=== PATIENT | female | born 1940 | race Caucasian/White ===

== ENCOUNTER 2017-07-08 00:06 | Observation (INO) ==
[2017-07-08] MEDS ORDERED: SALINE FLUSH 10ml SYRINGE IVF PRN (00:32)
[2017-07-08] MEDS ORDERED: ASPIRIN 81 MG CHEWABLE TABLET PO ONE (01:18)
--- NOTE | 2017-07-08 01:18 | Emergency Department Report ---
General Adult HPI - General Chief complaint: Chest Pain Stated complaint: Left side numb/chest feels heavy Time Seen by Provider: 07/08/17 00:19 Source: patient, family Mode of arrival: wheelchair Limitations: no limitations - History of Present Illness HPI narrative: 77-year-old female presents to the emergency department with the chief complaint of chest pressure and tingling in the left upper extremity. Patient states that she noted a tingling in her left upper extremity began at approximately 1700 today while she was at home. Patient also notes pressure in the midsternal region of the chest without radiation. Pressure is moderate. She denies any other complaints or associated symptoms other than some mild nausea. Patient states that her symptoms have been persistent in nature since onset and have been improving without intervention prior to arrival to the emergency department. No other complaints or associated symptoms. - Related Data Home Medications Medication Instructions Recorded Confirmed Ubidecarenone (Coq-10) 1 cap PO TID #0 10/04/15 Calcium Carb,Gluc/Mag Ox,Gluc 1 tab PO DAILY #0 04/05/16 [Calcium Magnesium Caplet] Cholecalciferol (Vitamin D3) 1 tab PO DAILY #0 04/05/16 [Vitamin D3] Lutein 20 mg PO DAILY #0 tab 04/05/16 [place]-3 Fatty Acids/Fish Oil [Fish 1,000 mg PO BID #0 cap 04/05/16 Oil 1,000 mg Capsule] Oregano Oil [Oil of Oregano] 1 tab PO BID #0 04/05/16 Vitamin E Acetate [Vitamin E] 1 cap PO DAILY #0 04/05/16 Vitamins A and D [Vitamin A and D] 1 tab PO DAILY #0 04/05/16 Zinc [Zinc Lozenge] 1 ellyn SL DAILY #0 04/05/16 levOCARNitine [l-Carnitine] 1 tab PO DAILY #0 04/05/16 Previous Rx's Medication Instructions Recorded Lisinopril 1 tab PO DAILY #5 tab 10/04/15 Allergies Allergy/AdvReac Type Severity Reaction Status Date / Time Sulfa (Sulfonamide Allergy Unknown Verified 07/08/17 01:19 Antibiotics) Review of Systems Constitutional: Denies: fever, chills Eyes: Denies: eye pain, vision change ENT: Denies: ear pain, throat pain Cardiovascular: Reports: chest pain. Denies: palpitations Respiratory: Denies: cough, dyspnea Gastrointestinal: Reports: nausea. Denies: abdominal pain, vomiting, diarrhea Genitourinary: Denies: urgency, dysuria Musculoskeletal: Denies: back pain, arthralgia Integumentary: Denies: erythema, rash Neurological: Denies: headache, weakness, numbness Psychiatric: Denies: anxiety, depression Endocrine: Denies: fatigue, heat or cold intolerance Hematological/Lymphatic: Denies: easy bleeding, easy bruising Allergic/Immunologic: Denies: facial swelling, urticaria PFSH Patient Stated Medical History Migraine Yes Hypertension Yes Other Cardiology Yes: KNOWN LEFT BUNDLE BRANCH BLOCK Surgical History: Negative. Family History: Reviewed and Non-contributory. - Social History Smoking status: Never smoker Substance use type: does not use Alcohol intake frequency: does not drink Physical Exam - Limitations Limitations: no limitations - General General appearance: alert, in no apparent distress - Normal Exams: Head:: Normocephalic without trauma Eyes:: Pupils are PERRLA w/ EOMI, No scleral icterus, irritation, or foreign bodies noted ENMT:: No facial trauma, nasal exudates, pharyngeal erythema, or exudates are noted Dental: No fractured, loose, or missing teeth noted Neck:: Full range of motion, without adenopathy, JVD, bruits or thyromegaly Chest/Respirations:: Clear all heath, with good airflow, and symmetry bilaterally Cardiovascular:: Regular rate and rhythm, without murmur or gallop, Pulses 2+ all extremities, capillary refill, <2 seconds all extremities Abdomen:: Bowel sounds positive, soft, non-tender, non-distended, no hepatosplenomegaly, masses or bruits noted Lymphatic:: No lymphadenopathy, or lymphedema noted Musculoskeletal:: No tenderness, or deformity noted, good range of motion, all extremities Integumentary:: No rashes, hives, or bruising noted, hair and nails, without abnormality Neurological:: Patient is alert, and oriented, cranial nerves, motor/sensory/ cerebellar, exams w/o gross deficits, to observation (Alert and oriented x 4. CN 2-12 intact. Normal strength. normal motor. Normal sensation. normal speech. normal coordination. absent babinski bilat. Reflexes 2/4 in all ext. Gait normal. unremarkable neurological exam. No focal neurological deficits.) Psychiatric:: Patient exhibits, appropriate attention, emotion and affect Course Vital Signs Temperature 97.8 F 07/08/17 00:09 Pulse Rate 95 07/08/17 00:09 Respiratory Rate 16 07/08/17 00:09 Blood Pressure 189/86 H 07/08/17 00:09 Pulse Oximetry 98 07/08/17 00:09 Temperature 97.8 F 07/08/17 00:09 Pulse Rate 78 07/08/17 01:42 Respiratory Rate 18 07/08/17 01:42 Blood Pressure 143/66 H 07/08/17 01:42 Pulse Oximetry 98 07/08/17 01:42 Medical Decision Making - MDM Narrative Medical decision making narrative: Labs / imaging were discussed in detail with the patient and questions are answered. Upon arrival to the emergency department the patient's chest pressure and tingling in the left upper extremity have resolved in entirety. Patient is given 243 mg of aspirin to go with the 81 mg of aspirin that she has taken prior to arrival to the emergency department this evening. Patient is discussed with the hospitalist Dr. De Oliveira and will be admitted to the service of Dr. Ferreira in improved condition. Patient remains asymptomatic during her emergency department stay. Patient's blood pressure improved to 129/60. Patient is in agreement with the current plan of management. She is admitted to the hospital in improved condition. Accepting physician is in agreement with the current plan of management. No further orders. Due to the tingling in the left upper extremity stroke workup was initiated but stroke alert was not called. Patient is not a candidate for TPA as there is no clearcut ischemic CVA present. Patient's symptoms began at 1700 and she is outside of the window for TPA. Symptoms have resolved. - Differential Diagnosis VT, Metabolic process, HTN, UTI - Lab Data Result diagrams: 07/08/17 00:32 07/08/17 00:32 Lab Results 07/08/17 07/08/17 07/08/17 Range/Units 00:32 00:32 00:42 WBC 10.6 (4.5-11.0) T/MM3 RBC 5.00 (4.00-5.20) M/MM3 Hgb 14.2 (12-16) GM/DL Hct 42.6 (36-46) % MCV 85.2 (80-100) UM3 MCH 28.4 (26-34) UUG MCHC 33.3 (31-37) GM/DL RDW Std Deviation 40.5 (36.9-50.2) FL Plt Count 281 (130-400) T/MM3 MPV 10.1 (9.4-12.4) UM3 Immature Gran % (Auto) 0.1 (0.0-0.5) % Neut % (Auto) 46.1 (33-66) % Lymph % (Auto) 43.2 (23-45) % Woods % (Auto) 8.4 (0-9.0) % Eos % (Auto) 1.7 (0-4) % Baso % (Auto) 0.5 (0-2) % Neut # (Auto) 4.9 (1.8-7.7) T/MM3 Lymph # (Auto) 4.6 (1-4.8) T/MM3 Woods # (Auto) 0.9 H (0-0.8) T/MM3 Eos # (Auto) 0.2 (0-0.5) T/MM3 Baso # (Auto) 0.1 (0-0.2) T/MM3 Abs Immat Gran (auto) 0.01 (0.00-0.03) T/MM3 INR 0.97 L (0.99-1.21) APTT 28.8 (24-36) SEC Turbidity < 20 (0-20) Sodium 141 (134-144) MEQ/L Potassium 3.9 (3.6-5) MEQ/L Chloride 106 (98-107) MEQ/L Carbon Dioxide 24 (22-30) MEQ/L Anion Gap 11 (5-15) MEQ/L BUN 25.0 H (7-17) MG/DL Creatinine 0.7 (0.7-1.2) MG/DL GFR Calculation 81 BUN/Creatinine Ratio 36 H (6-26) RATIO Glucose 93 (65-110) MG/DL Calculated Osmolality 275 (261-280) MOSM/KG Calcium 9.7 (8.4-10.2) MG/DL Total Bilirubin 0.40 (0.20-1.30) MG/DL Icterus Index < 2 (0-7) AST 29 (14-36) U/L ALT 33 (9-52) U/L Alkaline Phosphatase 123 (38-126) U/L Troponin I < 0.012 (0-0.12) ng/ml Total Protein 7.2 (6.3-8.2) G/DL Albumin 4.0 (3.5-5.0) G/DL Globulin 3.2 (2.4-3.6) G/DL Albumin/Globulin Ratio 1.3 (1.1-2.2) RATIO Specimen Hemolysis < 15 (0-25) - Radiology Data CT Head - No acute processes. CXR - No acute processes. Similar to comparison exam. - EKG Data EKG #1 EKG results narrative: Sinus rhythm. Left axis deviation. Left bundle branch block. 94 bpm. No STEMI. EKG is similar to 10/04/15. Disposition Clinical Impression: Chest pain Qualifiers: Chest pain type: unspecified Qualified Code(s): R07.9 - Chest pain, unspecified Disposition: To [facility] Condition: Improved Prescriptions: No Action Ubidecarenone (Coq-10) 1 cap PO TID #0 Vitamin E Acetate [Vitamin E] 1 cap PO DAILY #0 Cholecalciferol (Vitamin D3) [Vitamin D3] 1 tab PO DAILY #0 Oregano Oil [Oil of Oregano] 1 tab PO BID #0 [place]-3 Fatty Acids/Fish Oil [Fish Oil 1,000 mg Capsule] 1,000 mg PO BID #0 cap Lisinopril 1 tab PO DAILY #5 tab Zinc [Zinc Lozenge] 1 ellyn SL DAILY #0 Vitamins A and D [Vitamin A and D] 1 tab PO DAILY #0 Lutein 20 mg PO DAILY #0 tab levOCARNitine [l-Carnitine] 1 tab PO DAILY #0 Calcium Carb,Gluc/Mag Ox,Gluc [Calcium Magnesium Caplet] 1 tab PO DAILY #0 Referrals: Terrence Shah II, MD [Family Provider] - Time of Disposition: 01:20 (Admit. Dr. Ferreira. ) - Seen By: physician
[2017-07-08] MEDS ORDERED: HYDROMORPHONE 2 MG/ML INJECTION IVP PRN (02:56)
[2017-07-08] MEDS ORDERED: HYDROCODONE/APAP 5mg/325mg TABLET PO PRN (02:56)
[2017-07-08 03:14] VITALS: BMI 22.7
--- NOTE | 2017-07-08 04:22 | History & Physical Report ---
<Sohail De Oliveira I - Last Filed: 07/08/17 04:18> History of Present Illness Date: 07/08/17 Chief complaint: Chest pressure HPI: Michelle is a pleasant 77-year-old female patient who presented to the emergency department with 7/10 midsternal chest pressure. It was preceded by some left upper extremity tingling. Onset was while she was making a smoothie. Her initial systolic blood pressure was recorded at 190, her symptoms resolved spontaneously in the emergency department prior to the administration of any medication, her blood pressure actually fell all the way to 129/60 spontaneously. Workup in the emergency department included a normal CT scan of the head, chest x-ray, and troponin. She has a chronic left bundle branch block which precluded further interpretation of her EKG. She is apparently scheduled to see cardiology in the near future, a referral made by her primary care physician as last month she had an episode of left shoulder pain and presyncope, and complains of intermittent palpitations. Due to the above, it is reasonable to observe her for serial physical and laboratory evaluation and further risk stratification. Review of Systems - Constitutional Constitutional: Absent: chills, fatigue, fever(s), headache(s) - EENMT Eyes: Absent: change in vision - Cardiovascular Cardiovascular: Present: chest pain, palpitations, syncope ( As above). Absent : edema - Gastrointestinal Gastrointestinal: Absent: abdominal pain, change in bowel habits Gastrointestinal Comments: she carries a diagnosis of microscopic colitis, and thus monitors her diet very closely. She has had no recent changes in her stool habits. - Neurological Neurological: Absent: abnormal gait, abnormal movements, focal weakness [facility] Patient Stated Medical History Migraine Yes Hypertension Yes Other Cardiology Yes: KNOWN LEFT BUNDLE BRANCH BLOCK Medical History Updates: Microscopic colitis. mild dyslipidemia Surgical History: Negative. - Social History Smoking status: Never smoker Medications Home Medications Medication Instructions Recorded Confirmed Type Ubidecarenone (Coq-10) 1 cap PO TID #0 10/04/15 07/08/17 History Calcium Carb,Gluc/Mag Ox,Gluc 1 tab PO DAILY #0 04/05/16 History [Calcium Magnesium Caplet] Cholecalciferol (Vitamin D3) 1 tab PO DAILY #0 04/05/16 History [Vitamin D3] Lutein 20 mg PO DAILY #0 tab 04/05/16 History [place]-3 Fatty Acids/Fish Oil [Fish 1,000 mg PO BID #0 cap 04/05/16 07/08/17 History Oil 1,000 mg Capsule] Oregano Oil [Oil of Oregano] 1 tab PO BID #0 04/05/16 07/08/17 History Vitamin E Acetate [Vitamin E] 1 cap PO DAILY #0 04/05/16 07/08/17 History Vitamins A and D [Vitamin A and D] 1 tab PO DAILY #0 04/05/16 07/08/17 History Zinc [Zinc Lozenge] 1 ellyn SL DAILY #0 04/05/16 07/08/17 History levOCARNitine [l-Carnitine] 1 tab PO DAILY #0 04/05/16 07/08/17 History Allergies Allergy/AdvReac Type Severity Reaction Status Date / Time Sulfa (Sulfonamide Allergy Unknown Verified 07/08/17 01:19 Antibiotics) Exam Vital Signs: Temperature 97.8 F 07/08/17 00:09 Pulse Rate 73 07/08/17 03:19 Respiratory Rate 20 07/08/17 03:19 Blood Pressure 129/60 07/08/17 03:19 Pulse Oximetry 96 07/08/17 03:19 Telemetry Ectopy: Bundle Branch Block Height/Weight/BMI: Height 4 ft 11 in Weight 51.1 kg Body Mass Index 22.7 - Constitutional Present: no acute distress, well nourished, cooperative - Routine HEENT Exam Head: Present: normocephalic, atraumatic Eye: Present: EOMI, PERRL ENT: Present: mucous membranes moist, dentition normal - Routine Neck Exam Present: supple. Absent: JVD - Routine Respiratory Exam Present: CTA bilaterally. Absent: respiratory distress - Routine Cardiovascular Exam Present: RRR, no murmur - Routine Abdominal Exam Present: soft, normoactive bowel sounds, non distended. Absent: tenderness - Routine Extremities Exam Absent: cyanosis, clubbing, edema - Routine Skin Exam Present: warm. Absent: rash - Routine Neurological Exam Present: alert, oriented X3, CN II-XII intact. Absent: motor deficit - Routine Psychiatric Exam Present: normal affect, normal thought process Comments: examination performed using telemedicine equipment with the assistance of the bedside nurse Results - Labs CBC & Chem 7: 07/08/17 00:32 07/08/17 00:32 Labs: troponin negative Assessment and Plan (1) Chest pain Current visit: Yes Status: Acute she is placed in observation for serial physical and laboratory evaluation to rule out acute coronary Syndrome. this may be associated with accelerated hypertension, but cause and effect are unclear at this time. If troponin remains negative, would proceed with nuclear medicine cardiac stress test evaluation, which is ordered for this morning. 07/08/17 04:29 (2) Microscopic colitis Current visit: Yes Status: Acute She may require the assistance of dietary in order to observe her necessary restrictions. 07/08/17 04:30 (3) Hypertension Current visit: Yes Status: Acute She was quite hypertensive on initial presentation, as described above this improved spontaneously. Would continue her DANIEL inhibitor, further medication adjustments pending the above. 07/08/17 04:30 Resuscitation Status: Full Code Assessment and Plan: Will provide further symptomatically supportive and diagnostic cares as her current workup, or changes in her clinical scenario indicates. Plan of care was discussed with the patient at the time of my evaluation and she expressed understanding and desired to proceed. Hospital Course Summary Disclaimer: The visit summary below is not to be considered part of the above Progress Note. <Pepper Ferreira - Last Filed: 07/08/17 17:22> History of Present Illness Date: 07/08/17 Exam Vital Signs: Temperature 98.0 F 07/08/17 07:01 Pulse Rate 70 07/08/17 08:00 Respiratory Rate 13 07/08/17 07:01 Blood Pressure 128/59 07/08/17 07:01 Pulse Oximetry 98 07/08/17 07:01 Height/Weight/BMI: Height 1.5 m Weight 50.802 kg Body Mass Index 22.7 Results - Labs CBC & Chem 7: 07/08/17 00:32 07/08/17 00:32 Assessment and Plan (1) Chest pain Current visit: Yes Status: Acute (2) Microscopic colitis Current visit: Yes Status: Acute (3) Hypertension Current visit: Yes Status: Acute Assessment and Plan: Dr. De Oliveira's note reviewed. Mrs. Gilbert interviewed and examined. CC: Chest pressure HPI: Michelle is a pleasant 77-year-old female patient who presented to the emergency department with 7/10 midsternal chest pressure. It was preceded by some left upper extremity tingling. Onset was while she was making a smoothie. There is no associated dyspnea, diaphoresis, nausea/vomiting, or radiation. She reports some minor lightheadedness. Her initial systolic blood pressure was recorded at 190, her symptoms resolved spontaneously in the emergency department prior to the administration of any medication, her blood pressure actually fell all the way to 129/60 spontaneously. Workup in the emergency department included a normal CT scan of the head, chest x-ray, and troponin. She has a chronic left bundle branch block which precluded further interpretation of her EKG. patient reports she's had episodes of pressure in her chest in the past and dates them back to April of this year when she had an episode of syncope. She can typically avoid episodes by taking COQ-10 prior to activities or at the onset of chest discomfort. She has known about left bundle branch block in the past. She reports family history of coronary artery disease and one sister who had an AICD. Patient denied pattern of episodes of chest discomfort/heaviness. She is apparently scheduled to see cardiology in the near future, a referral made by her primary care physician as last month she had an episode of left shoulder pain and presyncope, and complains of intermittent palpitations. Due to the above, it is reasonable to observe her for serial physical and laboratory evaluation and further risk stratification. PH/SH/FH: agree with that recorded above with additions the patient has no history of alcohol or illicit drug use. Family history: Father of liver cancer, mother of coronary disease and one sister had heart disease with a defibrillator. Patient's primary care physician is Dr. Shah, she is a DO NOT RESUSCITATE, and her daughter (Janie Kahn) is her DPOA. ROS: 10 point review negative outside of symptoms mentioned by Dr. De Oliveira or in history of present illness. EXAM: General-NAD, pleasant, alert; 98.0, 128/59, 98% room air, pulse 81 HEENT-PERRL, EOMI without nystagmus, conjunctiva clear, sclera anicteric, conjugate gaze, facial structures symmetric, oropharynx clear, neck supple and without adenopathy Lungs-respirations nonlabored, good airflow, breath sounds clear Cardiac-regular cardiac rhythm, S1-S2 Abd-soft, nontender, without palpable mass, bowel sounds present Ext-without edema Skin-without rash or wounds Neuro-cranial nerves 3-12 intact, motor tone and power normal, sensation intact 4 extremities Psych-calm, cooperative DATA: Twelve-lead EKG reviewed-LBBB, sinus rhythm. Chest x-ray reviewed by myself-NAD, CT head reviewed-no acute pathology. Troponins <0.012-0.021-<0.012 CBC/chemistry is unremarkable A/P: Chest pain History syncope LBBB Microscopic colitis Echocardiogram ordered, Dr. Paredes to see-stress test planned this afternoon. Subsequently discussed with Dr. Paredes reviewed patient at high risk based on additional episodes of syncope described by patient when he spoke with her and frequency of episodes of chest pain which were exertional. Awaiting images from stress test; anticipate additional cardiac testing in the near future with cardiac catheterization and loop recorder due to family history of sudden requiring defibrillator in the patient's sister. Aspirin initiated. Avoid beta blockers pending further clarification of cause of syncope. Anticipate discharge later today. Hospital Course Summary Disclaimer: The visit summary below is not to be considered part of the above Progress Note.
[2017-07-08 07:16] VITALS: TEMP 98; O2SAT 98
--- NOTE | 2017-07-08 07:58 | XRay Report ---
Indication: Right-sided chest Pain and left arm numbness PROCEDURE: XR chest 1V: Encounter: Initial Comparison: October 04, 2015 Findings: The lungs are stable in appearance without new focal airspace consolidation. There is no pleural effusion or pneumothorax. The heart size, pulmonary vascularity and mediastinal contours are unchanged. IMPRESSION: Stable appearance of the chest without acute cardiopulmonary disease. .
--- NOTE | 2017-07-08 07:59 | CT Scan Report ---
Indication: tingling LUE PROCEDURE: CT head/brain wo con: Encounter: Initial Comparison: None Technique: Axial CT images through the head were performed without contrast. Iterative Reconstruction dose reducing technique was utilized. FINDINGS: The ventricles are of normal size, shape, and contour for the patient's age. There are scattered areas of low attenuation in the white matter which most likely represent changes from chronic microvascular ischemia. The brainstem, cerebellum, and cerebral hemispheres otherwise have a normal morphology and CT attenuation. There is no evidence of midline displacement. No hemorrhage, signs of acute territorial stroke, mass effect, mass lesions, or edema is evident. The visualized portions of the skull base, midface, and calvarium demonstrate no abnormality. The paranasal sinuses are well aerated and free of significant disease. The tympanic and mastoid cavities appear normal. IMPRESSION: No acute intracranial abnormality or hemorrhage. There is a preliminary report by [employer]. .
[2017-07-08] MEDS ORDERED: ZINC PO SCH (09:00)
[2017-07-08] MEDS ORDERED: COENZYME Q-10 200mg TABLET PO SCH ×2 (09:00→21:00)
[2017-07-08] MEDS ORDERED: LISINOPRIL 20 MG TABLET PO SCH ×2 (09:00→21:00)
[2017-07-08] MEDS ORDERED: VITAMIN E 200 UNIT CAPSULE PO SCH (09:00)
[2017-07-08] MEDS ORDERED: VITAMINS A AND D PO SCH (09:00)
[2017-07-08] MEDS ORDERED: OREGANO OIL PO SCH (09:00)
[2017-07-08] MEDS ORDERED: OMEGA-3 ACID ESTERS 1 GM CAPSULE PO SCH (09:00)
--- NOTE | 2017-07-08 09:56 | Progress Note ---
Progress Note: SPoke with patient re: opts for stress test. She was scheduled for this today when she was admitted overnight, however, there needs to be a manager of compliance present. She is not currently established with a manager of compliance and would like to go ahead and have the testing performed here. Dr. Paredes was consulted. He' ll see patient this afternoon and plan for stress test at 1530.
[2017-07-08] MEDS ORDERED: REGADENOSON 0.4 MG/5 ML INJECTION IVP ONE (13:07)
[2017-07-08] MEDS ORDERED: SALINE FLUSH 10ml SYRINGE ONE (13:07)
--- NOTE | 2017-07-08 15:27 | Cardiology Consult Note ---
History of Present Illness Chief complaint: chest pressure, left arm numb <Jazmyn Levy R - 07/08/17 15:47> History of present illness: cp was proceeded by L arm tingling started at rest and hurt continously x6 hrs then moved to the chest while lying in bed without worsening with activity. bp usually runs normal but may drop to 90/60's. also ahd some palpitations while in ER and son notice heart started gradually racing to 130 on the monitor. all strips avaolble reviewed , and telemetry strips in the chart show NSR. pt is nondiabetic . <Delroy Paredes Napoleon - 07/08/17 19:45> 77 yo female with a hx of LBBB, syncope, and HTN presents to the ED for chest pressure and numbness in her left arm. pt began experiencing constant arm numbness around 1700 yesterday. denies cp , soa, N/V, diaphoresis, lightheadedness associated with it. she took COQ10, fish oil, and BP meds with no relief. at 2300 when she was lying in bed she started to feel chest pressure in her right breast area, did not radiate, it was constant and nothing made it better, she is unsure of worsening factors, position or walking didn't seem to affect it. 2330 she decided to have her son drive her to the ER, she walked into the ER herself from the parking lot. her systolic BP was in the 190s, pt states she was given baby ASA, when her systolic BP came down to 120s she states the numbness and pressure had resolved. she states her BP normally runs in the 90/[address] Paredes was consulted to do a stress nuclear scan and echo. she is asymptomatic currently, denies arm numbness, cp, chest pressure, palpitations, soa, lightheadedness, dizziness. 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 PMH: pt states on Apr 26 she had an episode of sharp L shoulder pain, weakness and loss of vision which only lasted a few seconds while she was sitting at her table, she does not think she lost consciousness as she was still sitting at her table when her vision came back. She went to her PCP and they did not find anything significant. she states she can feel her heart start to flutter and feels pressure from her LBBB- she says she will take a COQ10 and it will go away in 30 minutes; she states since this episode the pressure/fluttering will occur a couple times a day whereas before she didn't have to take it as often. The last week of May she had another spell while up in the kitchen and she got double vision for a couple minutes, checked in the mirror for facial droop and did not note any. denies weakness, speech changes. she saw here PCP again and they scheduled an appt with Dr. Fuentes at [facility] for July 12. 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 she lost control of her bowels, no urinary incontinence, no jerking, tongue biting, or post-ictal phase. she has not hit her head or caused any injury from these syncopal episodes. denies hx of [place], stent placement or CABG, CAD, hyperlipidemia, stroke, seizures SH: denies alcohol, denies tobacco use. 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 she was in a research study from Jul 2015-Jul 2016 for "flu shot for older people" and states since then she has had high BP for which she takes lisinopril. pt states she does not drink much liquids, may be dehydrated. <Jazmyn Levy 07/08/17 19:16> Review of Systems All systems PM: 10-point ROS was reviewed, no additional remarkable complaints except <Jazmyn Levy 07/08/17 15:47> - Constitutional Constitutional: Absent: fever(s), headache(s), weakness <Jazmyn Levy 15:47> - EENMT Eyes: Present: as per HPI. Absent: change in vision <Jazmyn Levy 07/08 15:47> - Cardiovascular Cardiovascular: Present: as per HPI <Jazmyn Levy 07/08/17 15:47> - Respiratory Respiratory: Absent: cough, dyspnea <Jazmyn Levy 07/08/17 15:47> - Gastrointestinal Gastrointestinal: Absent: abdominal pain, hematochezia, nausea, vomiting < JoaquínJazmyn mandel 07/08/17 15:47> - Musculoskeletal Musculoskeletal: Absent: muscle weakness <JoaquínJazmyn mandel 07/08/17 15:47> - Neurological Neurological: Present: numbness. Absent: abnormal speech, confusion, dizziness , focal weakness, frequent falls, loss of vision <Jazmyn Levy 07/08/17 15:47> [facility] Patient Stated Medical History Migraine Yes Hypertension Yes Myocardial Infarction No Other Cardiology Yes: KNOWN LEFT BUNDLE BRANCH BLOCK Diabetes Mellitus Type 1 No Diabetes Mellitus Type 2 No <Delroy Paredesd 07/08/17 19:45> Patient Stated Medical History Migraine Yes Hypertension Yes Other Cardiology Yes: KNOWN LEFT BUNDLE BRANCH BLOCK <JoaquínJazmyn mandel 07/08/17 15:47> Medical History Updates: Microscopic colitis. mild dyslipidemia. LBBB dg about age 63 <Jazmyn Levy 07/08/17 19:16> Surgical History: Negative. <JoaquínJazmyn mandel 07/08/17 15:47> Family History: Mother: stroke Sister: "heart stopped, had to have defibrillator be put in" 69 yo gallbladder CA 3 other sisters have heart issues, unsure of exactly what. father: 69 yo Liver CA <JoaquínJazmyn mandel 07/08/17 15:47> - Social History Smoking status: Never smoker <Jazmyn Levy 07/08/17 15:47> Substance use type: does not use <Jazmyn Levy 07/08/17 15:47> Alcohol intake frequency: does not drink <JoaquínJazmyn mandel Leon 07/08/17 15:47> Medications Home Medications Medication Instructions Recorded Confirmed Type Ubidecarenone (Coq-10) 1 cap PO TID #0 10/04/15 07/08/17 History Calcium Carb,Gluc/Mag Ox,Gluc 1 tab PO DAILY #0 04/05/16 History [Calcium Magnesium Caplet] Cholecalciferol (Vitamin D3) 1 tab PO DAILY #0 04/05/16 History [Vitamin D3] Lutein 20 mg PO DAILY #0 tab 04/05/16 History [place]-3 Fatty Acids/Fish Oil [Fish 1,000 mg PO BID #0 cap 04/05/16 07/08/17 History Oil 1,000 mg Capsule] Oregano Oil [Oil of Oregano] 1 tab PO BID #0 04/05/16 07/08/17 History Vitamin E Acetate [Vitamin E] 1 cap PO DAILY #0 04/05/16 07/08/17 History Vitamins A and D [Vitamin A and D] 1 tab PO DAILY #0 04/05/16 07/08/17 History Zinc [Zinc Lozenge] 1 ellyn SL DAILY #0 04/05/16 07/08/17 History levOCARNitine [l-Carnitine] 1 tab PO DAILY #0 04/05/16 07/08/17 History <Delroy Pareeds - 07/08/17 19:45> Allergies Allergy/AdvReac Type Severity Reaction Status Date / Time Sulfa (Sulfonamide Allergy Unknown Verified 07/08/17 01:19 Antibiotics) <Delroy Paredes - 07/08/17 19:45> Exam Vital signs: Temperature 98.0 F 07/08/17 17:04 Pulse Rate 76 07/08/17 17:04 Respiratory Rate 20 07/08/17 17:04 Blood Pressure 126/59 07/08/17 17:04 Pulse Oximetry 98 07/08/17 17:04 <Delroy Paredes - 07/08/17 19:45> Temperature 98.0 F 07/08/17 07:01 Pulse Rate 70 07/08/17 08:00 Respiratory Rate 13 07/08/17 07:01 Blood Pressure 128/59 07/08/17 07:01 Pulse Oximetry 98 07/08/17 07:01 <Jazmyn Levy - 07/08/17 15:47> Narrative: Tele strip: sinus rhythm with LBBB EKG: sinus rhthym, 94 BPM, LBBB CXR: impression: stable appearance of chest without cardiopulmonary disease. Head CT: Impression: no acute intracranial abnormalities or hemorrhage all labs reviewed in detail <Jazmyn Levy - 07/08/17 19:16> - Constitutional no acute distress, cooperative <Jazmyn Levy - 07/08/17 15:47> - Routine HEENT Exam Head: Present: normocephalic, atraumatic <Jazmyn Levy 07/08/17 15:47> Eye: Present: EOMI <Delroy Paredes - 07/08/17 19:45> ENT: Present: mucous membranes moist <Delroy Paredes - 07/08/17 19:45> - Routine Neck Exam Present: supple. Absent: JVD, carotid bruit <Jazmyn Levy - 07/08/17 19: 16> - Routine Chest/Breast/Axilla Exam Chest wall: Absent: tenderness <Jazmyn Levy 07/08/17 19:16> - Routine Respiratory Exam Present: CTA bilaterally. Absent: accessory muscle use, dyspnea <Jazmyn Levy 07/08/17 15:47> - Routine Cardiovascular Exam Present: RRR <Jazmyn Levy 07/08/17 19:16> - Routine Abdominal Exam Present: soft, normoactive bowel sounds, non distended, non tender <Jazmyn Levy 07/08/17 15:47> - Routine Extremities Exam Present: pulses intact, normal capillary refill. Absent: cyanosis, clubbing, edema <Jazmyn Levy R 07/08/17 15:47> - Routine Skin Exam Present: intact, dry. Absent: cyanosis, erythema <Jazmyn Levy R 15:47> - Routine Neurological Exam Present: alert, oriented X3, CN II-XII intact, moving all extremities, normal speech. Absent: motor deficit, facial asymmetry <Jazmyn Levy 07/08/17 15:47> - Routine Psychiatric Exam Present: normal affect, normal thought process <Jazmyn Levy 07/08/17 15 :47> Results 07/08/17 00:32 07/08/17 00:32 <Delroy Paredes - 07/08/17 19:45> Cardiac Enzymes 07/08/17 07/08/17 Range/Units 04:24 12:44 Troponin I 0.021 D < 0.012 (0-0.12) ng/ml Intake and Output 07/08/17 07/08/17 07/08/17 06:59 14:59 22:59 Other: Urine Appearance Clear Urine Color Yellow # Voids 1 Weight 51.1 kg 50.9 kg 50.802 kg Patient Weight 07/09/17 06:59 Weight 50.802 kg <Delroy Paredes Napoleon - 07/08/17 19:45> Cardiac Enzymes 07/08/17 07/08/17 Range/Units 04:24 12:44 Troponin I 0.021 D < 0.012 (0-0.12) ng/ml Intake and Output 07/08/17 07/08/17 07/08/17 06:59 14:59 22:59 Other: Urine Appearance Clear Urine Color Yellow # Voids 1 Weight 51.1 kg 50.9 kg Patient Weight 07/09/17 06:59 Weight 50.9 kg <Jazmyn Levy R - 07/08/17 15:47> - Imaging and Cardiology Imaging & Cardiology Narrative: 07/08/17 19:08 see report for nuc scan and echo. <JoaquínjorgechristianJazmyn - 07/08/17 19:16> EKG interpretations - Dysrhythmias Sinus rhythms and dysrhythmias: sinus rhythm <Jazmyn Levy - 07/08/17 19: 16> - Blocks, axis, hypertrophy, ST abn AV and intraventricular conduction: left bundle branch block (fixed/intermittent , complete/incomplete) <JoaquínJazmyn mandel Leon - 07/08/17 19:16> Assessment and Plan - Assessment and Plan (1) Chest pain Current visit: Yes Status: Acute * agree with primary service for echo and nuclear scan. * explained the options of a 30 day monitor versus the implantable loop recorder , pt would like to proceed with implant * will make appt for implant procedure; risks/benefits/indications/alternatives d/w pt in detail, pt verbally agrees to continue with procedure. * f/u with me in one week after procedure * tilt table test offered, pt declines at this time * d/w dr. wang about prescribing SL NTG in the supine position. (2) LBBB (left bundle branch block) Current visit: Yes Status: Acute (3) History of palpitations Current visit: Yes Status: Acute (4) History of syncope Current visit: Yes Status: Acute (5) Family history of heart disease Current visit: Yes Status: Acute (6) Family history of internal cardiac defibrillator Current visit: Yes Status: Acute <Jazmyn Levy - 07/08/17 19:22> (1) Chest pain Current visit: Yes Status: Acute (2) LBBB (left bundle branch block) Current visit: Yes Status: Acute (3) History of palpitations Current visit: Yes Status: Acute (4) History of syncope Current visit: Yes Status: Acute (5) Family history of heart disease Current visit: Yes Status: Acute (6) Family history of internal cardiac defibrillator Current visit: Yes Status: Acute <Delroy Paredes 07/08/17 19:45> - Assessment and Plan Dr. Paredes interviewed and examined the pt fully and in detail, formed plan of care. <Jazmyn Levy 07/08/17 15:47> Hospital Course Summary Disclaimer: The visit summary below is not to be considered part of the above Progress Note. I have personally examined and [id number] pt and obtained full Hx from pt and documentation by PA student was reviewed. the plan of care was discussed fully with hospiotalist service and pt and family.they agree. <Delroy Paredes 07/08/17 19:45> The visit summary below is not to be considered part of the above Progress Note. <Jazmyn Levy 07/08/17 15:47>
[2017-07-08] MEDS ORDERED: ASPIRIN *EC* 81 MG TABLET PO SCH (17:00)
[2017-07-08 17:25] VITALS: BP 126/59; PULSE 76; RESP 20
--- NOTE | 2017-07-08 19:04 | Discharge Instructions ---
Discharge Plan - Med Rec/Dispo Referrals/Follow Up: Terrence Shah II, MD [Family Provider] - 1 Week Delroy Paredes MD [Physician] - (Dr. Paredes's office will call to schedule follow-up appointment in 1-2 weeks; please notify him if you have further difficulty with chest pressure or syncope) Prescriptions: New Aspirin *EC* [Ecotrin] 81 mg PO DAILY tablet Continue Ubidecarenone (Coq-10) 1 cap PO TID #0 Vitamin E Acetate [Vitamin E] 1 cap PO DAILY #0 Cholecalciferol (Vitamin D3) [Vitamin D3] 1 tab PO DAILY #0 Oregano Oil [Oil of Oregano] 1 tab PO BID #0 [place]-3 Fatty Acids/Fish Oil [Fish Oil 1,000 mg Capsule] 1,000 mg PO BID #0 cap Lisinopril 1 tab PO DAILY #5 tab Zinc [Zinc Lozenge] 1 ellyn SL DAILY #0 Vitamins A and D [Vitamin A and D] 1 tab PO DAILY #0 Lutein 20 mg PO DAILY #0 tab levOCARNitine [l-Carnitine] 1 tab PO DAILY #0 Calcium Carb,Gluc/Mag Ox,Gluc [Calcium Magnesium Caplet] 1 tab PO DAILY #0 Discharge Instructions/Outpatient Orders: Provider Discharge Instructions Location: Determined By Patient - Disposition 01 Discharged Home, Self-Care
--- NOTE | 2017-07-08 19:31 | Cardiology Consult Note ---
History of Present Illness History of present illness: 77 yo female with a hx of LBBB and HTN presents to the ED for chest pressure and numbness in her left arm. pt states on Apr 26 she had an episode of sharp L shoulder pain and loss of vision which only lasted a few seconds while she was sitting at her table, she did not lose consciousness as she was still sitting at her table when her vision came back. She went to her PCP and they did not find anything significant. she states she can feel her heart start to flutter and feels pressure from her LBBB- she says she will take a COQ10 and it will go away in 30 minutes; she states since this episode the pressure/fluttering will occur a couple times a day whereas before she didn't have to take it as often. The last week of May she had another spell while up in the kitchen and she got double vision, checked in the mirror for facial droop and did not note any. denies weakness, speech changes. she saw here PCP again and they scheduled an appt with Dr. Fuentes at [facility] for July 12. 1700 yesterday she had arm numbness. denies cp, soa, N/V, diaphoresis, lightheadedness associated with it. she took COQ10, fish oil, and BP meds with no relief. at 2300 she started to feel the chest pressure and decided to have her son drive her to the ER. her systolic BP was in the 190s, pt states she was given baby ASA as well as a med in her IV that made her BP come down and she felt fine after that, numbness and pressure had resolved and her systolic BP came down to 120s. she states her BP normally runs in the 90/60 range. she is asymptomatic currently, denies cp, chest pressure, palpitations, soa, lightheadedness, dizziness. 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 denies hx of [place], CAD, hyperlipidemia, stroke SH: denies alcohol, denies tobacco use. 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 she was in a research study from Jul 2015-Jul 2016 for "flu shot for older people" and states since then she has had high BP for which she takes lisinopril. [facility] Patient Stated Medical History Migraine Yes Hypertension Yes Myocardial Infarction No Other Cardiology Yes: KNOWN LEFT BUNDLE BRANCH BLOCK Diabetes Mellitus Type 1 No Diabetes Mellitus Type 2 No Medical History Updates: Microscopic colitis. mild dyslipidemia Surgical History: Negative. - Social History Smoking status: Never smoker Medications Home Medications Medication Instructions Recorded Confirmed Type Ubidecarenone (Coq-10) 1 cap PO TID #0 10/04/15 07/08/17 History Calcium Carb,Gluc/Mag Ox,Gluc 1 tab PO DAILY #0 04/05/16 History [Calcium Magnesium Caplet] Cholecalciferol (Vitamin D3) 1 tab PO DAILY #0 04/05/16 History [Vitamin D3] Lutein 20 mg PO DAILY #0 tab 04/05/16 History [place]-3 Fatty Acids/Fish Oil [Fish 1,000 mg PO BID #0 cap 04/05/16 07/08/17 History Oil 1,000 mg Capsule] Oregano Oil [Oil of Oregano] 1 tab PO BID #0 04/05/16 07/08/17 History Vitamin E Acetate [Vitamin E] 1 cap PO DAILY #0 04/05/16 07/08/17 History Vitamins A and D [Vitamin A and D] 1 tab PO DAILY #0 04/05/16 07/08/17 History Zinc [Zinc Lozenge] 1 ellyn SL DAILY #0 04/05/16 07/08/17 History levOCARNitine [l-Carnitine] 1 tab PO DAILY #0 04/05/16 07/08/17 History Allergies Allergy/AdvReac Type Severity Reaction Status Date / Time Sulfa (Sulfonamide Allergy Unknown Verified 07/08/17 01:19 Antibiotics) Exam Vital signs: Temperature 98.0 F 07/08/17 17:04 Pulse Rate 76 07/08/17 17:04 Respiratory Rate 20 07/08/17 17:04 Blood Pressure 126/59 07/08/17 17:04 Pulse Oximetry 98 07/08/17 17:04 Results 07/08/17 00:32 07/08/17 00:32 Cardiac Enzymes 07/08/17 07/08/17 Range/Units 04:24 12:44 Troponin I 0.021 D < 0.012 (0-0.12) ng/ml Intake and Output 07/08/17 07/08/17 07/08/17 06:59 14:59 22:59 Other: Urine Appearance Clear Urine Color Yellow # Voids 1 Weight 51.1 kg 50.9 kg 50.802 kg Patient Weight 07/09/17 06:59 Weight 50.802 kg Hospital Course Summary Disclaimer: The visit summary below is not to be considered part of the above Progress Note. Hospital Course: 07/08/17 19:02 in summary see full note by PA student please, pt was fully and thoroughly interviewed and examined by me and formulated the plan of care. very interesting Hx of 77 yo complex with chronic LBBB ,recurrent syncope for 7 yrs + never with injury ,presented with chest pressure with L arm numbness w/ delta troponin but remained within normal range. unremarakble echocardiogram and MPI nuclaear scan.also had some palpitations apparently in ED had some sinus tachy 130's. none is in the chart. she has had exertional chest pressure before. sister with ICD in place in her 40's and heart disease. d.d includes vasovagal syncope/dehydration ?intermittent bradyarrythmia or tachyarrythmia. cannot r/o false negative stress nuclear scan management options fully discussed with family conference. decision at this time 1.implanted loop recorder in 7-10 days. she is to hold fish oil for now. this is to check for tachy or bradyarrhythmia. risks and benefits fully discussed including the risk of infection and bleed. she agrees . she much prefers that over 30 d event monitor. 2.increase po fluids 3.NTG prn CP ,she' s to assume supine position. ASA is reasonable . 4.options discussed , hold off heart cath at this time, in light of neg. MPI and clinically stable course. 5.consider EP eval. decision to hold off at this time. 6.discussed head up tilt table test ,she declines. 7. return to ED for recurrent CP . 8.f/u with me the following week .
--- NOTE | 2017-07-08 22:13 | Discharge Summary ---
Discharge Summary- Blank Discharge Summary: Mrs. Gilbert was hospitalized with chest pressure suggestive of angina. Blood pressure was elevated on arrival in the emergency room and chest pain resolved with blood pressure control. The patient also had some tingling in her left hand prior to arrival which resolved with blood pressure control. Chest x-ray and CT head were unremarkable as was EKG other than chronic LBBB. MO ruled out with serial cardiac enzymes. She was seen by Dr. Paredes and had both an echocardiogram and nuclear stress test which were reported to be essentially normal although formal reports are pending. Patient was felt stable to discharge home with nitroglycerin and aspirin. When the patient met with Dr. Paredes she described both additional episodes of syncope and frequent episodes of chest discomfort with a more typical angina pattern then she implied speaking with me. Additional outpatient testing with implanted loop recorder is planned and further cardiac testing may be needed depending on future symptoms. Patient is asked to follow-up with Dr. Shah within [address] Paredes's office will contact her for follow-up and to coordinate implanted loop recorder. Patient is to hold fish oil pending loop recorder implantation, may take 81 mg aspirin daily until 5 days prior to implantation, and prescribed sublingual nitroglycerin for when necessary use with strong recommendation that she sit or lie down prior to administration. Remainder of prior home medications have been continued without change. Discharge diagnosis: Chest pain c/w angina Syncope, history of LBBB Hypertension Microscopic colitis
[2017-07-09] MEDS ORDERED: VITAMINS A AND D PO SCH (09:00)
[2017-07-09] MEDS ORDERED: ZINC PO SCH (09:00)
[2017-07-09] MEDS ORDERED: OREGANO OIL PO SCH (09:00)
--- NOTE | 2017-07-09 10:28 | Echocardiogram ---
DATE OF STUDY 07/08/2017 INDICATIONS Chest pain, left bundle branch block, history of syncope/presyncope. TECHNICAL QUALITY Technically good 2D, M-mode, Doppler echocardiographic images were submitted for interpretation. FINDINGS 1. CARDIAC CHAMBERS: All cardiac chamber measurements are normal. The left atrium measures 2.5 cm. Aortic root diameter is normal. RV size and contractility appear normal. 2. LEFT VENTRICLE: Wall thickness 9 mm in the septal and posterior wall. Septal dysmotility is present due to LBBB. Overall, LV systolic function appears preserved. Ejection fraction visually estimated at 55%. No evidence of intracardiac clot. The papillary muscle appears prominent and probably hypertrophied. Appears to be echogenic at the insertion site for the tendons. Grade 1/4 diastolic dysfunction is present. E/A 0.7, E/e' 16.9. There does not appear to be any LVOT obstruction. No MITESH appreciated. LV end diastolic diameter measured 3.0 cm at end diastole, 2.1 cm in systole. This is a small LV cavity size without significant LVH present. 3. VALVES: Mitral valve leaflet appears mildly sclerotic . Valve opening is normal. No MITESH is appreciated. Aortic valve is trileaflet and exhibits mild sclerosis. Normal valve opening. Tricuspid valve structure and motion appear normal. Normal valve excursion. 4. DOPPLER: At least mild mitral regurgitation directed posteriorly and appearing eccentric (1 to 2+). [id number] tricuspid regurgitation is present. Systolic PA pressure estimated at 30 mmHg. Trace pulmonic insufficiency is present. Trivial whiff of aortic regurgitation is present. Peak flow velocity at the LVOT level measures 0.97 m/sec with normal signal. Normal flow velocity at the aortic valve area level measures 1.7 m/sec. 5. IVC exhibits full collapse suggestive of hypovolemia. 6. Systolic PA pressure estimated at 30 mmHg. Normal LV cavity size may be consistent with the same. IMPRESSION 1. Preserved LV systolic function, EF 55%. 2. Small LV cavity size with normal LV wall thickness measurement. 3. Grade 1/4 diastolic dysfunction. 4. Mildly sclerotic mitral valve with annular calcification. 5. At least mild mitral regurgitation (1 to 2+) without outflow tract obstruction. 6. [id number] tricuspid regurgitation. 7. Suspected hypovolemia. MTDD
--- NOTE | 2017-07-09 11:31 | Cardiology Report ---
DATE OF SERVICE 07/08/2017 INDICATIONS Chest pressure, LBBB. PROCEDURE PERFORMED Jaylin/Walk pharmacological stress nuclear scan. NARRATIVE OF PROCEDURE The patient was injected with a 99mTc Myoview dose of 13.2 mCi. A Lexiscan dose of 0.4 mg was followed by a 99mTc Myoview dose of 32.0 mCi. The patient denied any chest pain or pressure during the stress test. Rest EKG showed sinus rhythm at 75 beats per minute, LBBB. Normal PA interval, 150 milliseconds. During pharmacological stress the EKG portion was nondiagnostic. Heart rate went up to 135 beats per minute which is 96% of age-predicted maximum heart rate. Blood pressure at rest was 145/83 mmHg and remained stationary during the stress portion, only to drop in recovery to 122/73 mmHg. Stress and rest myocardial perfusion scan images were reviewed. There is adjacent gut uptake next to the inferolateral wall of the heart - within this limitation myocardial perfusion scan is considered normal. There is no significant perfusion defect identified. Gated images showed normal wall motion, normal contractility. LVEF 80% on stress images and 67% on rest images. In reviewing Rotatogram, there was no abnormal extracardiac uptake identified. IMPRESSION 1. Pharmacological/low-level exercise stress nuclear scan clinically and scintigraphically negative for ischemia with normal LVEF. 2. Electrically nondiagnostic due to LBBB. MTDD
== END 2017-07-08 19:45 | disposition home or self-care (01) ==
LOC: SRG 00:06 → ED 00:06 → SRG 02:55
PROVIDERS: ADMIT Emergency Medicine; ATTEND Internal Medicine